=== PATIENT | male | born 1945 | race Two or more races ===

== ENCOUNTER 2017-04-07 10:13 | Emergency (ER) | payer OTHER ==
[2017-04-07 10:18] VITALS: BMI 31.6
[2017-04-07] MEDS ORDERED: KETOROLAC TROMETHAMINE 30 MG/1 ML VIAL IVPUSH ONE (11:02)
[2017-04-07] MEDS ORDERED: SODIUM CHLORIDE 1,000 ML IV STA (11:02)
--- NOTE | 2017-04-07 11:03 | PDOC ---
History of Present Illness - History of Present Illness Initial Comments: 04/07/17 11:05 The patient is a 71 year old male, cook islander speaking, with a significant past medical history of diabetes, hld, umbilical hernias s/p multiple repairs, and obesity, who presents to the emergency department with 4 days of intermittent right upper quadrant and right flank pain. The patient denies any exacerbating or alleviating factors. He denies association with food. He denies injury or recent exercising. He also denies taking medication for his symptoms. He denies chest pain, shortness of breath, headache and dizziness. He denies fever, chills, nausea, vomit, diarrhea and constipation. He denies dysuria, frequency, urgency and hematuria. Allergies: NKDA Past surgical history: umbilical hernia repairs Social history: Pt denies tobacco use. Pt denies alcohol consumption PCP - Dr. Jose <Daniela Santana - Last Filed: 04/07/17 11:04> <Thais Cheney - Last Filed: 04/07/17 13:16> - General History Source: Patient Exam Limitations: No Limitations <Wellington Morocho - Last Filed: 04/07/17 14:41> - General Chief Complaint: Pain Stated Complaint: ABD PAIN Time Seen by Provider: 04/07/17 10:44 Past History <Daniela Santana - Last Filed: 04/07/17 11:04> <Thais Cheney - Last Filed: 04/07/17 13:16> - Past Medical History Anemia: No Asthma: Yes Cancer: No Cardiac Disorders: No CVA: No COPD: No CHF: No Dementia: No Diabetes: Yes (GERD,INTERNAL HEMORRHOIDS,CONSTIPATION,COLON POLYP) GI Disorders: No Disorders: Yes (PROSTATE) HTN: Yes Hypercholesterolemia: Yes Liver Disease: No Seizures: No Thyroid Disease: No - Surgical History Abdominal Surgery: Yes (hernia repair x3) Appendectomy: No Cardiac Surgery: No Cholecystectomy: No Lung Surgery: No Neurologic Surgery: No Orthopedic Surgery: No - Suicide/Smoking/Psychosocial Hx Smoking History: Never smoked Have you smoked in the past 12 months: No If you are a former smoker, when did you quit?: 35 YRS AGO Information on smoking cessation initiated: No Hx Alcohol Use: No Drug/Substance Use Hx: No Substance Use Type: None Hx Substance Use Treatment: No <Wellington Morocho - Last Filed: 04/07/17 14:41> - Past Medical History Allergies/Adverse Reactions: Allergies Allergy/AdvReac Type Severity Reaction Status Date / Time No Known Allergies Allergy Verified 04/07/17 10:18 Home Medications: Ambulatory Orders Albuterol Sulfate [Proair Hfa -] 1 inhaler IN PRN PRN 10/04/12 Aspirin [ASA -] 81 mg PO DAILY 10/04/12 Atorvastatin Ca [Lipitor] 20 mg PO HS 10/04/12 Doxepin HCl [Sinequan -] 50 mg PO DAILY 10/04/12 Enalapril Maleate [Vasotec -] 5 mg PO DAILY 10/04/12 Metformin HCl [Glucophage -] 500 mg PO DAILY 10/04/12 Montelukast Na [Singulair -] 10 mg PO HS 10/04/12 Omeprazole [Prilosec (RX)] 20 mg PO DAILY 10/04/12 Polyethylene Glycol 3350 [Miralax 255 gm Btl -] 17 gm PO DAILY #1 bottle Psyllium Husk (with Sugar) [Metamucil Packet] 1 each PO BID #0 packet 10/04/12 Tamsulosin HCl 0.4 mg PO DAILY 10/04/12 Venlafaxine HCl [Venlafaxine HCl ER] 150 mg PO DAILY 10/04/12 Ibuprofen 600 mg PO Q8H PRN #15 tablet 04/07/17 Review of Systems - Review of Systems Able to Perform ROS?: Yes Comments:: 04/07/17 11:06 GENERAL/CONSTITUTIONAL: No fever or chills. No weakness. HEAD, EYES, EARS, NOSE AND THROAT: No change in vision. No ear pain or discharge. No sore throat. CARDIOVASCULAR: No chest pain or shortness of breath. RESPIRATORY: No cough, wheezing, or hemoptysis. GASTROINTESTINAL: (+) RUQ pain. No nausea, vomiting, diarrhea or constipation. GENITOURINARY: (+) Right flank pain. No dysuria, frequency, or change in urination. MUSCULOSKELETAL: No joint or muscle swelling or pain. No neck or back pain. SKIN: No rash NEUROLOGIC: No headache, vertigo, loss of consciousness, or change in strength/ sensation. ENDOCRINE: No increased thirst. No abnormal weight change. HEMATOLOGIC/LYMPHATIC: No anemia, easy bleeding, or history of blood clots. ALLERGIC/IMMUNOLOGIC: No hives or skin allergy. <Daniela Santana - Last Filed: 04/07/17 11:04> *Physical Exam - Vital Signs Last Vital Signs Temp Pulse Resp BP Pulse Ox 98 F 86 18 146/76 98 04/07/17 10:16 04/07/17 10:16 04/07/17 10:16 04/07/17 10:16 04/07/17 10:16 - Physical Exam Comments: 04/07/17 11:07 GENERAL: Obese. Awake, alert, and fully oriented, in no acute distress HEAD: No signs of trauma EYES: PERRLA, EOMI, sclera anicteric, conjunctiva clear ENT: Auricles normal inspection, hearing grossly normal, nares patent, oropharynx clear without exudates. Moist mucosa NECK: Normal ROM, supple, no lymphadenopathy, JVD, or masses LUNGS: Breath sounds equal, clear to auscultation bilaterally. No wheezes, and no crackles HEART: Regular rate and rhythm, normal S1 and S2, no murmurs, rubs or gallops ABDOMEN: Soft, nontender, normoactive bowel sounds. No guarding, no rebound. No masses MUSCULOSKELETAL: (+) Right CVA tenderness. No CVA tenderness on the left. EXTREMITIES: Normal range of motion, no edema. No clubbing or cyanosis. No cords , erythema, or tenderness NEUROLOGICAL: Cranial nerves II-XII intact. Normal speech, normal gait. Sensation intact in upper and lower extremities. 5/5 motor strength in upper and lower extremities. No pronator drift. Finger to nose intact. Rapid alternations intact. SKIN: Warm, Dry, normal turgor, no rashes or lesions noted. <Daniela Santana - Last Filed: 04/07/17 11:04> - Vital Signs Last Vital Signs Temp Pulse Resp BP Pulse Ox 98 F 86 18 146/76 98 04/07/17 10:16 04/07/17 10:16 04/07/17 10:16 04/07/17 10:16 04/07/17 10:16 <Thais Cheney - Last Filed: 04/07/17 13:16> - Vital Signs Last Vital Signs Temp Pulse Resp BP Pulse Ox 98 F 86 18 146/76 98 04/07/17 10:16 04/07/17 10:16 04/07/17 10:16 04/07/17 10:16 04/07/17 10:16 <Wellington Morocho - Last Filed: 04/07/17 14:41> ED Treatment Course - LABORATORY CBC & Chemistry Diagram: 04/07/17 11:20 04/07/17 11:20 - ADDITIONAL ORDERS Additional order review: Laboratory Results 04/07/17 04/07/17 11:20 11:20 Sodium 135 L Potassium 5.0 Chloride 103 Carbon Dioxide 25 Anion Gap 7 L BUN 16 Creatinine 0.9 Creat Clearance w eGFR > 60 Random Glucose 149 H Calcium 9.4 Total Bilirubin 0.7 AST 42 H ALT 31 Alkaline Phosphatase 88 Total Protein 7.5 Albumin 4.1 Lipase 202 Urine Color Ltyellow Urine Appearance Clear Urine pH 5.0 Urine Protein Negative Urine Glucose (UA) 2+ H Urine Ketones Negative Urine Blood Negative Urine Nitrite Negative Urine Bilirubin Negative Urine Urobilinogen Negative 04/07/17 11:20 RBC 6.23 H MCV 80.8 MCHC 33.2 RDW 15.0 MPV 8.1 Neutrophils % 64.2 Lymphocytes % 25.0 Monocytes % 8.9 Eosinophils % 1.2 Basophils % 0.7 - RADIOLOGY Radiograph Interpretation: 04/07/17 13:[address] without contrast, reviewed and interpreted by Dr. Valencia. Impression: No CT evidence of urolithiasis or hydroureteronephrosis. Prostate enlargement which is at least moderate. Cholelithaisis without CT evidence of acute cholecystitis. In comparison to a [address] study which partially imaged the lower chest note is made of interval development of left basilar bronchiectasis with associated peribronchial thickening. Umbilical hernia containing fat. A short segment of a small bowel loop slightly bulges into the hernia defect. Hepatic steatosis. - Medications Given in the ED: ED Medications Discontinued Medications Generic Name Dose Route Start Last Admin Trade Name Freq PRN Reason Stop Dose Admin Sodium Chloride 1,000 mls @ 1,000 mls/hr 04/07/17 11:02 04/07/17 11:44 Normal Saline - IV 04/07/17 12:01 1,000 mls/hr ASDIR STA Administration Ketorolac Tromethamine 30 mg 04/07/17 11:02 04/07/17 11:44 Toradol Injection - IVPUSH 04/07/17 11:03 30 mg ONCE ONE Administration <Thais Cheney - Last Filed: 04/07/17 13:16> - LABORATORY CBC & Chemistry Diagram: 04/07/17 11:20 04/07/17 11:20 - RADIOLOGY Radiology Studies Ordered: Category Date Time Status SPIRAL- RENAL-STONE CT [CT] Stat CT Scan 04/07/17 11:02 Ordered <Wellington Morocho - Last Filed: 04/07/17 14:41> Medical Decision Making - Medical Decision Making 04/07/17 11:41 A portion of this note was documented by scribe services under my direction. I have reviewed the details of the note, within reason, and agree with the documentation with the following case summary and management plan written by me. Patient treated in the ED. Nursing notes are reviewed and incorporated into the medical decision-making. Vital signs reviewed. Peripheral IV access obtained by the nurse, laboratory studies are drawn and sent, reviewed and interpreted by myself. Vital Signs Temp Pulse Resp BP Pulse Ox 98 F 86 18 146/76 98 04/07/17 10:16 04/07/17 10:16 04/07/17 10:16 04/07/17 10:16 04/07/17 10:16 71 year old male with past medical history of diabetes, hypertension, umbilical hernia status post multiple repairs, obesity presents with right flank and right upper abdominal pain. Patient reports four days worsened with twisting and turning side to side. States standing up improves the pain but worsens with lying down or palpation. Denies fevers, chills, nausea, vomiting, dysuria, hematuria. Differential includes MSK pain, pyelonephritis, kidney stones, colitis. Labs, CT scan, reassess. 04/07/17 14:38 CBC, BMP 04/07/17 11:20 04/07/17 11:20 CMP Sodium 135 mmol/L (136-145) L 04/07/17 11:20 Potassium 5.0 mmol/L (3.5-5.1) 04/07/17 11:20 Chloride 103 mmol/L (98-107) 04/07/17 11:20 Carbon Dioxide 25 mmol/L (21-32) 04/07/17 11:20 Anion Gap 7 (8-16) L 04/07/17 11:20 BUN 16 mg/dL (7-18) 04/07/17 11:20 Creatinine 0.9 mg/dL (0.7-1.3) 04/07/17 11:20 Creat Clearance w eGFR > 60 (>60) 04/07/17 11:20 Random Glucose 149 mg/dL (74-106) H 04/07/17 11:20 Calcium 9.4 mg/dL (8.5-10.1) 04/07/17 11:20 Total Bilirubin 0.7 mg/dL (0.2-1.0) 04/07/17 11:20 AST 42 U/L (15-37) H 04/07/17 11:20 ALT 31 U/L (12-78) 04/07/17 11:20 Alkaline Phosphatase 88 U/L (45-117) 04/07/17 11:20 Total Protein 7.5 g/dl (6.4-8.2) 04/07/17 11:20 Albumin 4.1 g/dl (3.4-5.0) 04/07/17 11:20 Lipase 202 U/L (73-393) 04/07/17 11:20 Urine Test Results Urine Color Ltyellow 04/07/17 11:20 Urine Appearance Clear 04/07/17 11:20 Urine pH 5.0 (5.0-8.0) 04/07/17 11:20 Urine Protein Negative (NEGATIVE) 04/07/17 11:20 Urine Glucose (UA) 2+ (NEGATIVE) H 04/07/17 11:20 Urine Ketones Negative (NEGATIVE) 04/07/17 11:20 Urine Blood Negative (NEGATIVE) 04/07/17 11:20 Urine Nitrite Negative (NEGATIVE) 04/07/17 11:20 Urine Bilirubin Negative (NEGATIVE) 04/07/17 11:20 CAT scan demonstrates umbilical hernia, cholelithiasis without acute cholecystitis and prostate enlargement. There is also interval development a left basilar bronchiectasis with associated peribronchial thickening. However, patient is no coughing and no left sided symptoms. We'll give a copy of the CAT scan have patient bring the results to his doctor. Patient reports that the Toradol is improved the pain drastically. He has no right upper quadrant tenderness so unlikely to be acute cholecystitis at this time. I suspect again this is muscle skeletal given that the movements worsen the pain and better at rest. Patient verbalizes agrees with plan. I discussed the physical exam findings, ancillary test results and final diagnoses with the patient. I answered all of the patient's questions. The patient was satisfied with the care received and felt comfortable with the discharge plan and treatment plan. The patient will call their primary care physician within 24 hours to arrange follow-up and will return to the Emergency Department with any new, persistant or worsening symptoms. <Wellington Morocho - Last Filed: 04/07/17 14:41> *DC/Admit/Observation/Transfer - Attestations Scribe Attestion: 04/07/17 11:07 Documentation prepared by Daniela Santana, acting as chief medical technologist for Wellington Morocho MD, <Daniela Santana - Last Filed: 04/07/17 11:04> - Attestations Scribe Attestion: 04/07/17 13:21 Documentation prepared by Thais Cheney, acting as chief medical technologist for Wellington Morocho MD. <Thais Cheney - Last Filed: 04/07/17 13:16> - Discharge Dispostion Admit: No <Wellington Morocho - Last Filed: 04/07/17 14:41> Diagnosis at time of Disposition: Flank pain - Discharge Dispostion Disposition: HOME Condition at time of disposition: Improved - Prescriptions Prescriptions: Ibuprofen 600 mg PO Q8H PRN #15 tablet PRN Reason: Pain - Referrals Referrals: Zarina Jose MD [Primary Care Provider] - Nathan Burnette MD [Staff Physician] - - Patient Instructions Printed Discharge Instructions: DI for Gallstones Additional Instructions: We suspect that the pain is likely muscle skeletal at this time. Your blood work and a urine is within normal limits. However, it is important to take a copy of your CAT scan and bring it to your doctor. You have gallstones but is unlikely to be the cause of the pain at this time. However, please avoid fatty foods and follow-up with a general surgeon for follow-up. Please call your doctor schedule a follow-up point. If you have uncontrollable pain, please return to the ER for further evaluation. Print Language: BURUNDIAN
[2017-04-07 11:28] LABS: BASOPHIL 0.7 % (0-2.0); EOSINOPHIL 1.2 % (0-4.5); MCH 26.8 pg (25.7-33.7); MCHC 33.2 g/dl (32.0-35.9); MEAN CELL VOLUME 80.8 fl (80-96); MEAN PLT VOLUME 8.1 fl (7.5-11.1); NEUTROPHILS 64.2 % (42.8-82.8); PLATELET COUNT 210 K/MM3 (134-434); WHITE BLOOD COUNT 8.1 K/mm3 (4.0-10.0)
[2017-04-07 11:29] LABS: URINE APPEARANCE CLEAR; URINE BILIRUBIN NEGATIVE (NEGATIVE); URINE BLOOD NEGATIVE (NEGATIVE); URINE COLOR LTYELLOW; URINE GLUCOSE (UA) 2+ (NEGATIVE); URINE KETONE NEGATIVE (NEGATIVE); URINE LEUK ESTERASE NEGATIVE (NEGATIVE); URINE NITRITE NEGATIVE (NEGATIVE); URINE PROTEIN NEGATIVE (NEGATIVE); URINE UROBILINOGEN NEGATIVE mg/dL (0.2-1.0)
[2017-04-07] MEDS ORDERED: KETOROLAC TROMETHAMINE 30 MG/1 ML VIAL ONE (11:40)
[2017-04-07 11:52] LABS: ALBUMIN 4.1 g/dl (3.4-5.0); ALK PHOS 88 U/L (45-117); ANION GAP 7 (8-16); BILIRUBIN,TOTAL 0.7 mg/dL (0.2-1.0); CALCIUM 9.4 mg/dL (8.5-10.1); CO2 25 mmol/L (21-32); CREATININE 0.9 mg/dL (0.7-1.3); GLUCOSE,RANDOM 149 mg/dL (74-106); SGPT/ALT 31 U/L (12-78); TOT PROT 7.5 g/dl (6.4-8.2)
[2017-04-07 11:54] LABS: SGOT/AST 42 U/L (15-37)
[2017-04-07] MEDS ORDERED: ACETAMINOPHEN 325 MG TABLET (FP) PO ONE (14:03)
[2017-04-07] MEDS ORDERED: ACETAMINOPHEN 325 MG TABLET (FP) ONE (15:01)
[2017-04-07 15:12] VITALS: BP 139/79; PULSE 67; TEMP 98
== END 2017-04-07 15:12 | disposition home or self-care (01) ==
LOC: JER 10:13
PROC: 3E0333Z Introduction of Anti-inflammatory into Peripheral Vein, Percutaneous Approach (ICD-10-PCS; principal; 2017-04-07)
DX: K80.20 Calculus of gallbladder without cholecystitis without obstruction (principal); K42.9 Umbilical hernia without obstruction or gangrene; N40.0 Benign prostatic hyperplasia without lower urinary tract symptoms; J45.909 Unspecified asthma, uncomplicated; E11.9 Type 2 diabetes mellitus without complications; Z79.84 Long term (current) use of oral hypoglycemic drugs; E78.00 Pure hypercholesterolemia, unspecified; Z87.19 Personal history of other diseases of the digestive system
CPT/HCPCS: 36415; 74176; 80053; 81003; 83690; 85025; 87086; 99283-25

== ENCOUNTER 2017-07-05 12:25 | Inpatient (IN) | payer OTHER ==
--- NOTE | 2017-07-05 12:52 | PDOC ---
History of Present Illness - General History Source: Patient Exam Limitations: No Limitations - History of Present Illness Initial Comments: 07/05/17 14:11 The patient is a 72 year old male with a significant PMH of diabetes, hyperlipidemia, depression, bilateral knee arthritis, and umbilical hernias (s/ p multiple repairs) who presents to the emergency department with chest pain and subjective fever beginning approximately yesterday morning. The patient reports that he was walking yesterday morning when he experienced a sudden onset of diffuse chest pain. He reports that his chest pain is aggravated by minimal exertion and deep inspiration. He notes he was unable to lie down flat or exert himself too much all of yesterday. He notes he does not feel chest pain at presentation but can reproduce it by bending over, walking, or deeply inspiring. The patient also notes having a subjective fever yesterday with associated night sweats. The patient denies shortness of breath, headache and dizziness. Denies chills, nausea, vomit, diarrhea and constipation. Denies dysuria, frequency, urgency and hematuria. Allergies: NKA Past surgical history: 3x umbilical hernia repairs. Social history: Former smoker (35 years ago). No reported alcohol or drug use. PCP: Dr. Johnson If patient wants to call brother, his brother's # is <Wellington Dunbar - Last Filed: 07/05/17 18:31> <Melissa Avila - Last Filed: 07/11/17 11:03> - General Chief Complaint: Chest Pain Stated Complaint: CHEST PAIN Time Seen by Provider: 07/05/17 12:50 Past History <Wellington Dunbar - Last Filed: 07/05/17 18:31> - Past Medical History Anemia: No Asthma: Yes Cancer: No Cardiac Disorders: No CVA: No COPD: No CHF: No DVT: No Dementia: No Diabetes: Yes (GERD,INTERNAL HEMORRHOIDS,CONSTIPATION,COLON POLYP) GI Disorders: No Disorders: Yes (PROSTATE) HTN: Yes Hypercholesterolemia: Yes Liver Disease: No Seizures: No Thyroid Disease: No - Surgical History Abdominal Surgery: Yes (hernia repair x3) Appendectomy: No Cardiac Surgery: No Cholecystectomy: No Lung Surgery: No Neurologic Surgery: No Orthopedic Surgery: No - Suicide/Smoking/Psychosocial Hx Smoking History: Never smoked Have you smoked in the past 12 months: No If you are a former smoker, when did you quit?: 35 YRS AGO Information on smoking cessation initiated: No Hx Alcohol Use: No Drug/Substance Use Hx: No Substance Use Type: None Hx Substance Use Treatment: No <AutsinMelissa - Last Filed: 07/11/17 11:03> - Past Medical History Allergies/Adverse Reactions: Allergies Allergy/AdvReac Type Severity Reaction Status Date / Time No Known Allergies Allergy Verified 07/05/17 12:39 Home Medications: Ambulatory Orders Albuterol Sulfate [Proair Hfa -] 1 inhaler IN PRN PRN 10/04/12 Aspirin [ASA -] 81 mg PO DAILY 10/04/12 Atorvastatin Ca [Lipitor] 20 mg PO HS 10/04/12 Doxepin HCl [Sinequan -] 100 mg PO DAILY 10/04/12 Metformin HCl [Glucophage -] 500 mg PO 1700 10/04/12 Omeprazole [Prilosec (RX)] 20 mg PO DAILY 10/04/12 Polyethylene Glycol 3350 [Miralax 255 gm Btl -] 17 gm PO DAILY #1 bottle Psyllium Husk (with Sugar) [Metamucil Packet] 1 each PO BID #0 packet 10/04/12 Tamsulosin HCl 0.4 mg PO HS 10/04/12 Venlafaxine HCl [Venlafaxine HCl ER] 225 mg PO DAILY 10/04/12 Fluticasone Furoate [Flonase Sensimist] 1 spr NS DAILY 07/05/17 Loratadine [Claritin -] 10 mg PO DAILY 07/05/17 Losartan Potassium [Cozaar -] 25 mg PO DAILY 07/05/17 Albuterol 2.5/Ipratropium 0.5 [Duoneb -] 1 amp NEB Q8H PRN #1 amp 07/07/17 Azithromycin [Zithromax -] 500 mg PO DAILY #8 tab 07/07/17 Cefuroxime Axetil [Cefuroxime] 500 mg PO BID #8 tablet 07/07/17 Miscellaneous Medical Supply [Outpatient Order] 1 each ASDIR #1 misc Review of Systems - Review of Systems Able to Perform ROS?: Yes Comments:: 07/05/17 14:11 GENERAL/CONSTITUTIONAL: (+) Subjective fever. (+) Night sweats. No chills. No weakness. HEAD, EYES, EARS, NOSE AND THROAT: No change in vision. No ear pain or discharge. No sore throat. CARDIOVASCULAR: (+) Diffuse chest pain. No shortness of breath. RESPIRATORY: No cough, wheezing, or hemoptysis. GASTROINTESTINAL: No nausea, vomiting, diarrhea or constipation. GENITOURINARY: No dysuria, frequency, or change in urination. MUSCULOSKELETAL: No joint or muscle swelling or pain. No neck or back pain. SKIN: No rash NEUROLOGIC: No headache, vertigo, loss of consciousness, or change in strength/ sensation. ENDOCRINE: No increased thirst. No abnormal weight change. HEMATOLOGIC/LYMPHATIC: No anemia, easy bleeding, or history of blood clots. ALLERGIC/IMMUNOLOGIC: No hives or skin allergy. <Wellington Dunbar - Last Filed: 07/05/17 18:31> *Physical Exam - Vital Signs Last Vital Signs Temp Pulse Resp BP Pulse Ox 98.7 F 113 H 22 139/87 95 07/05/17 12:41 07/05/17 12:41 07/05/17 12:41 07/05/17 12:41 07/05/17 13:17 <Wellington Dunbar - Last Filed: 07/05/17 18:31> - Vital Signs Last Vital Signs Temp Pulse Resp BP Pulse Ox 98.7 F 113 H 22 139/87 96 07/05/17 12:41 07/05/17 12:41 07/05/17 12:41 07/05/17 12:41 07/05/17 12:41 - Physical Exam Comments: GENERAL: Awake, alert, and fully oriented, in no acute distress. Appears ill but nontoxic. HEAD: No signs of trauma EYES: PERRLA, EOMI, sclera anicteric, conjunctiva clear ENT: Auricles normal inspection, hearing grossly normal, nares patent, oropharynx clear without exudates. Dry mucosa NECK: Normal ROM, supple, no lymphadenopathy, JVD, or masses LUNGS: Breath sounds equal, clear to auscultation bilaterally. No wheezes, and no crackles HEART: Tachycardic with regular rhythm. Normal S1 and S2, no murmurs, rubs or gallops ABDOMEN: Soft, nontender, normoactive bowel sounds. No guarding, no rebound. No masses EXTREMITIES: Normal range of motion, no edema. No clubbing or cyanosis. No cords, erythema, or tenderness NEUROLOGICAL: Cranial nerves II through XII grossly intact. Normal speech, normal gait SKIN: Warm, Dry, normal turgor, no rashes or lesions noted. <Melissa Avila - Last Filed: 07/11/17 11:03> ED Treatment Course - LABORATORY CBC & Chemistry Diagram: 07/05/17 13:00 07/05/17 13:00 - ADDITIONAL ORDERS Additional order review: Laboratory Results 07/05/17 13:00 Sodium 136 Potassium 4.0 Chloride 99 Carbon Dioxide 27 Anion Gap 10 BUN 9 D Creatinine 1.1 D Creat Clearance w eGFR > 60 Random Glucose 161 H Calcium 9.2 Total Bilirubin 1.3 H D AST 12 L D ALT 21 D Alkaline Phosphatase 90 Creatine Kinase 155 Troponin I < 0.02 Total Protein 7.6 Albumin 3.9 07/05/17 13:00 RBC 6.31 H MCV 79.5 L MCHC 32.9 RDW 14.4 MPV 8.2 Neutrophils % 79.2 D Lymphocytes % 11.8 D Monocytes % 7.9 Eosinophils % 0.4 Basophils % 0.7 <Wellington Dunbar - Last Filed: 07/05/17 18:31> - LABORATORY CBC & Chemistry Diagram: 07/07/17 05:05 07/07/17 05:05 <Melissa Avila - Last Filed: 07/11/17 11:03> Medical Decision Making - Medical Decision Making 07/05/17 18:26 Pt reassessed. Still appears uncomfortable. CTA shows signs of bronchiectasis. He has elevated WBC on labs, this may possibly be a pneumonia. However, with the exertional chest pain and recent fever, would also consider myocarditis. Will admit for further management. <Melissa Avila - Last Filed: 07/11/17 11:03> *DC/Admit/Observation/Transfer - Attestations Scribe Attestion: 07/05/17 14:11 Documentation prepared by Wellington Dunbar, acting as medical billing coordinator for Melissa Avila MD. <Wellington Dunbar - Last Filed: 07/05/17 18:31> - Discharge Dispostion Admit: Yes <Melissa Avila - Last Filed: 07/11/17 11:03> Diagnosis at time of Disposition: Chest pain, Pneumonia - Discharge Dispostion Disposition: VNS/HOME HEALTH CARE Condition at time of disposition: Good
[2017-07-05 13:24] LABS: BASO % 0.7 % (0-2.0); EOS % 0.4 % (0-4.5); MCH 26.2 pg (25.7-33.7); MCHC 32.9 g/dl (32.0-35.9); MEAN CELL VOLUME 79.5 fl (80-96); MEAN PLT VOLUME 8.2 fl (7.5-11.1); NEUT % 79.2 % (42.8-82.8); PLATELET COUNT 253 K/MM3 (134-434); RDW 14.4 % (11.9-15.9); WHITE BLOOD COUNT 16.2 K/mm3 (4.0-10.0)
[2017-07-05 13:46] LABS: ALBUMIN 3.9 g/dl (3.4-5.0); ANION GAP 10 (8-16); BILIRUBIN,TOTAL 1.3 mg/dL (0.2-1.0); CALCIUM 9.2 mg/dL (8.5-10.1); CO2 27 mmol/L (21-32); CREATININE 1.1 mg/dL (0.7-1.3); GLUCOSE,RANDOM 161 mg/dL (74-106); SGOT/AST 12 U/L (15-37); SGPT/ALT 21 U/L (12-78); TOT PROT 7.6 g/dl (6.4-8.2)
[2017-07-05 13:47] LABS: ALK PHOS 90 U/L (45-117); CPK 155 IU/L (39-308); TROPONIN I < 0.02 ng/ml (0.00-0.05)
[2017-07-05] MEDS ORDERED: SODIUM CHLORIDE 1,000 ML IV STA (13:57)
[2017-07-05 14:08] LABS: INR 1.2 (0.82-1.09); PROTHROMBIN TIME (PATIENT) 13.6 SEC (9.98-11.88)
[2017-07-05] MEDS ORDERED: ACETAMINOPHEN 325 MG TABLET (FP) PO ONE (14:09)
[2017-07-05] MEDS ORDERED: ACETAMINOPHEN 325 MG TABLET (FP) ONE (14:59)
[2017-07-05] MEDS ORDERED: AZITHROMYCIN IVPB 500 MG in DEXTROSE 5%-WATER - 250 ML IVPB ONE ×2 (18:14→19:47)
[2017-07-05] MEDS ORDERED: CEFTRIAXONE 1 GM in DEXTROSE 5%-WATER - 50 ML IVPB ONE (18:14)
[2017-07-05] MEDS ORDERED: ASPIRIN 81 MG CHEWABLE TABLETS PO ONE (18:20)
[2017-07-05] MEDS ORDERED: AZITHROMYCIN IVPB 250 ML IVPB ONE (19:10)
[2017-07-05] MEDS ORDERED: ASPIRIN 81 MG CHEWABLE TABLETS ONE (19:10)
[2017-07-05] MEDS ORDERED: CEFTRIAXONE 1 GM/50 ML BAG ONE (19:10)
--- NOTE | 2017-07-05 19:21 | PN ---
Teaching Attending Note Name of Resident: Maryann Phan ATTENDING PHYSICIAN STATEMENT I saw and evaluated the patient. I reviewed the resident's note and discussed the case with the resident. I agree with the resident's findings and plan as documented. SUBJECTIVE: 72 m with pmhx. of DM, HLD, depression, bilateral knee arthritis, and umbilical hernias (s/p multiple repairs) who presents with left sided chest pain. States pain began as he was walking yesterday. States chest pain is much improved. No fevers or chills currently. No N/V/D. OBJECTIVE: Physical: VS: Vital Signs Period Temp Pulse Resp BP Sys/Grande Pulse Ox Last 24 Hr 98.7 F 100-113 18-22 125-139/74-87 94-96 GEN: NAD, Resting in bed, able to speak full sentences HEENT: NCAT, PERRl, Throat without erythema or exudates CARD: RRR S1, S2 RESP: CTAB ABD: BSx4, NTD to palption EXT: - C/C/E CBCD WBC 16.2 K/mm3 (4.0-10.0) H D 07/05/17 13:00 RBC 6.31 M/mm3 (4.00-5.60) H 07/05/17 13:00 Hgb 16.5 GM/dL (11.7-16.9) 07/05/17 13:00 Hct 50.1 % (35.4-49) H 07/05/17 13:00 MCV 79.5 fl (80-96) L 07/05/17 13:00 MCHC 32.9 g/dl (32.0-35.9) 07/05/17 13:00 RDW 14.4 % (11.9-15.9) 07/05/17 13:00 Plt Count 253 K/MM3 (134-434) D 07/05/17 13:00 MPV 8.2 fl (7.5-11.1) 07/05/17 13:00 CMP Sodium 136 mmol/L (136-145) 07/05/17 13:00 Potassium 4.0 mmol/L (3.5-5.1) 07/05/17 13:00 Chloride 99 mmol/L (98-107) 07/05/17 13:00 Carbon Dioxide 27 mmol/L (21-32) 07/05/17 13:00 Anion Gap 10 (8-16) 07/05/17 13:00 BUN 9 mg/dL (7-18) D 07/05/17 13:00 Creatinine 1.1 mg/dL (0.7-1.3) D 07/05/17 13:00 Creat Clearance w eGFR > 60 (>60) 07/05/17 13:00 Random Glucose 161 mg/dL (74-106) H 07/05/17 13:00 Calcium 9.2 mg/dL (8.5-10.1) 07/05/17 13:00 Total Bilirubin 1.3 mg/dL (0.2-1.0) H D 07/05/17 13:00 AST 12 U/L (15-37) L D 07/05/17 13:00 ALT 21 U/L (12-78) D 07/05/17 13:00 Alkaline Phosphatase 90 U/L (45-117) 07/05/17 13:00 Total Protein 7.6 g/dl (6.4-8.2) 07/05/17 13:00 Albumin 3.9 g/dl (3.4-5.0) 07/05/17 13:00 CARDIAC ENZYMES Creatine Kinase 155 IU/L (39-308) 07/05/17 13:00 Troponin I < 0.02 ng/ml (0.00-0.05) 07/05/17 13:00 Ambulatory Orders RX: Albuterol Sulfate [Proair Hfa -] 1 inhaler IN PRN PRN 10/04/12 RX: Aspirin [ASA -] 81 mg PO DAILY 10/04/12 RX: Atorvastatin Ca [Lipitor] 20 mg PO HS 10/04/12 RX: Doxepin HCl [Sinequan -] 100 mg PO DAILY 10/04/12 RX: Metformin HCl [Glucophage -] 500 mg PO 1700 10/04/12 RX: Omeprazole [Prilosec (RX)] 20 mg PO DAILY 10/04/12 RX: Polyethylene Glycol 3350 [Miralax 255 gm Btl -] 17 gm PO DAILY #1 bottle RX: Psyllium Husk (with Sugar) [Metamucil Packet] 1 each PO BID #0 packet RX: Tamsulosin HCl 0.4 mg PO HS 10/04/12 RX: Venlafaxine HCl [Venlafaxine HCl ER] 225 mg PO DAILY 10/04/12 Fluticasone Furoate [Flonase Sensimist] 1 spr NS DAILY 07/05/17 Loratadine [Claritin -] 10 mg PO DAILY 07/05/17 Losartan Potassium [Cozaar -] 25 mg PO DAILY 07/05/17 CTA: No CT evidence of PE, but bronchiectesis present. HEART 4 EKG: NSR, NO ST-T changes ASSESSMENT AND PLAN: 72 m with pmhx. of DM, HLD, depression, bilateral knee arthritis, and umbilical hernias (s/p multiple repairs) whois being admitted for acs rule out 1.) Chest Pain - Ro ACS - Trend Trop/EKG - ASA - BB, ARB - 02 - Morphine/Nitro prn chest pain - Statin - Lipid/A1c 2.) Atypical Pneumonia - U Ag - Ceftriaxone, Azithro 3.) DM - FS - RAISS - HgbA1c 4.) Depression - C/W Current meds 5.) Dvt ppx - Heparin [address] in Obs-Tele
--- NOTE | 2017-07-05 19:56 | HP ---
CHIEF COMPLAINT: Chest pain PCP: Dr. Johnson HISTORY OF PRESENT ILLNESS: Patient is a 72 year old male with a PMHx of NIDDMII, HLD, HTN, depression, Arthritis who presented today for sudden sharp left sided chest pain that started yesterday morning associated with subjective fevers. Patient states the pain is exacerbated with minimal exertion, moving or bending and associated with dyspnea However, when he lays flat down the chest pain is gone. Patient's chest pain worsened today to the point he was unable to tolerate it, which prompted this hospital visit. Patient denies being around sick people. Patient also denies any orthopnea. Otherwise, patient denies nausea, vomiting, abdominal pain, shortness of breath, headaches, dizziness, hematuria, dysuria, frequency. ER course was notable for: (1) CTA revealed Broncheictasis (2) Patient given ASA 162, Azithromycin and Ceftriaxone (3) EKG revealed no ST-T changes Recent Travel: Denies PAST MEDICAL HISTORY: NIDDMII, HLD, HTN, depression, Arthritis PAST SURGICAL HISTORY: Hernia Repair x3 Social History: Smoking: Former Smoker. Quit 35 years ago Alcohol: Denies Drugs: Denies Family History: Non-contributory Allergies: No Known Allergies Allergy (Verified 07/05/17 12:39) HOME MEDICATIONS: Home Medications Medication Instructions Recorded Albuterol Sulfate [Proair Hfa -] 1 inhaler IN PRN PRN 10/04/12 Aspirin [ASA -] 81 mg PO DAILY 10/04/12 Atorvastatin Ca [Lipitor] 20 mg PO HS 10/04/12 Doxepin HCl [Sinequan -] 100 mg PO DAILY 10/04/12 Metformin HCl [Glucophage -] 500 mg PO 1700 10/04/12 Omeprazole [Prilosec (RX)] 20 mg PO DAILY 10/04/12 Polyethylene Glycol 3350 [Miralax 17 gm PO DAILY #1 bottle 10/04/12 255 gm Btl -] Psyllium Husk (with Sugar) 1 each PO BID #0 packet 10/04/12 [Metamucil Packet] Tamsulosin HCl 0.4 mg PO HS 10/04/12 Venlafaxine HCl [Venlafaxine HCl 225 mg PO DAILY 10/04/12 ER] Fluticasone Furoate [Flonase 1 spr NS DAILY 12/19/17 Sensimist] Loratadine [Claritin -] 10 mg PO DAILY 07/05/17 Losartan Potassium [Cozaar -] 25 mg PO DAILY 07/05/17 REVIEW OF SYSTEMS CONSTITUTIONAL: fever, chills, diaphoresis Absent: generalized weakness, malaise, loss of appetite, weight change HEENT: Absent: rhinorrhea, nasal congestion, throat pain, throat swelling, difficulty swallowing, mouth swelling, ear pain, eye pain, visual changes CARDIOVASCULAR: chest pain Absent: syncope, palpitations, irregular heart rate, lightheadedness, peripheral edema RESPIRATORY: Absent: cough, shortness of breath, dyspnea with exertion, orthopnea, wheezing, stridor, hemoptysis GASTROINTESTINAL: Absent: abdominal pain, abdominal distension, nausea, vomiting, diarrhea, constipation, melena, hematochezia GENITOURINARY: Absent: dysuria, frequency, urgency, hesitancy, hematuria, flank pain, genital pain MUSCULOSKELETAL: Absent: myalgia, arthralgia, joint swelling, back pain, neck pain SKIN: Absent: rash, itching, pallor HEMATOLOGIC/IMMUNOLOGIC: Absent: easy bleeding, easy bruising, lymphadenopathy, frequent infections ENDOCRINE: Absent: unexplained weight gain, unexplained weight loss, heat intolerance, cold intolerance NEUROLOGIC: Absent: headache, focal weakness or paresthesias, dizziness, unsteady gait, seizure, mental status changes, bladder or bowel incontinence PSYCHIATRIC: Absent: anxiety, depression, suicidal or homicidal ideation, hallucinations. PHYSICAL EXAMINATION Vital Signs - 24 hr 07/05/17 07/05/17 07/05/17 12:41 13:17 17:52 Temperature 98.7 F Pulse Rate 113 H Pulse Rate [ 100 H Right Radial] Respiratory 22 18 Rate Blood Pressure 139/87 Blood Pressure 125/74 [Left Arm] O2 Sat by Pulse 96 95 94 L Oximetry (%) GENERAL: Awake, alert, and fully oriented, in no acute distress. HEAD: Normal with no signs of trauma. EYES: Pupils equal, round and reactive to light, extraocular movements intact, sclera anicteric, conjunctiva clear. Mild exophthalmos EARS, NOSE, THROAT: Oropharynx clear without exudates. Moist mucous membranes. NECK: supple without lymphadenopathy, JVD, or masses. LUNGS: Breath sounds equal, clear to auscultation bilaterally. No wheezes, and no crackles. No accessory muscle use. HEART: Regular rate and rhythm, normal S1 and S2 without murmur, rub or gallop. ABDOMEN: Soft, nontender, not distended, normoactive bowel sounds, no guarding, no rebound, no masses. No hepatomegaly or splenomegaly. MUSCULOSKELETAL: No CVA tenderness. UPPER EXTREMITIES: No peripheral edema. LOWER EXTREMITIES: No calf tenderness. No peripheral edema. NEUROLOGICAL: Cranial nerves II-XII intact. Normal speech. Motor strength 5/5 bilaterally with sensory intact. Knee reflexes 2+bilaterally PSYCHIATRIC: Cooperative. Good eye contact. Appropriate mood and affect. SKIN: Warm, dry, normal turgor, no rashes or lesions noted, normal capillary refill. Laboratory Results - last 24 hr 07/05/17 07/05/17 07/05/17 13:00 13:00 13:00 WBC 16.2 H D RBC 6.31 H Hgb 16.5 Hct 50.1 H MCV 79.5 L MCH 26.2 MCHC 32.9 RDW 14.4 Plt Count 253 D MPV 8.2 Neutrophils % 79.2 D Lymphocytes % 11.8 D Monocytes % 7.9 Eosinophils % 0.4 Basophils % 0.7 PT with INR 13.60 H INR 1.20 H Sodium 136 Potassium 4.0 Chloride 99 Carbon Dioxide 27 Anion Gap 10 BUN 9 D Creatinine 1.1 D Creat Clearance w eGFR > 60 Random Glucose 161 H Calcium 9.2 Total Bilirubin 1.3 H D AST 12 L D ALT 21 D Alkaline Phosphatase 90 Creatine Kinase 155 Creatine Kinase Index 0.6 CK-MB (CK-2) < 1.000 Troponin I < 0.02 Total Protein 7.6 Albumin 3.9 IMAGES Chest X-Ray (07/05/17): Cardiomegaly with bibasilar atelectasis CTA (07/05/17): No CT evidence of pulmonary embolism. In comparison to a prior CT study of 05/31/2012 interval development of mild bibasilar bronchiectasis is noted. Associated peribronchial thickening is seen which may be chronic or acute in nature ASSESSMENT/PLAN: Patient is a 72 year old male who presented with chest pain that started yesterday. Patient was found to be septic and admitted for further monitoring and management. Atypical Chest Pain -Rule out ACS -First troponin negative. Continue to trend with EKG's -ASA 161mg given in ED an will resume ASA 81mg ddaily -Continue with Home medication Cozaar -Patient currently on no beta bradley -Morphine or Nitroglycerin for chest pain as needed -Continue with oxygen -Resume home medication Lipitor 20mg daily -Lipid Panel ordered -A1C ordered -TSH ordered. Patient also found to have mild exophthalmos on physical exam -ECHO ordered for the morning -Continue to monitor on telemetry Sepsis Secondary to Possible CAP -Leukocytosis >12 with tachycardia -CTA revealed bronchiectasis ansd atelectasis on chest x-ray which might represent atypical Pneumonia -Urine antigens, sputum cultures, and mycoplasma pneumoniae IgM ordered -IV antibiotics with Ceftriaxone 1gm IVPB daily and Azithromycin 500mg IVPB NIDDM -BGM -ISS -A1C ordered HTN-Controlled -Continue home medication Cozaar 25mg daily -Continue to monitor BP HLD -Continue home medication Lipitor 20mg daily -Lipid panel ordered Depression -Continue home medication Doxepin 100mg daily and Venalafaxine 225mg daily BPH -Continue Tamsulosin 0.4mg daily F/E/N -Given 1 bolus in ED. Tolerates PO -Electrolytes wnl -Sodium and diabetic controlled diet Prophylaxis -Moderate risk. Heparin 5000 units SQ Q8H for DVT -No GI required Disposition -Full code -Will rule out ACS and treat patient with IV abx for sepsis. Will require inpatient overnight Visit type - Emergency Visit Emergency Visit: Yes ED Registration Date: 07/05/17 Care time: The patient presented to the Emergency Department on the above date and was hospitalized for further evaluation of their emergent condition. - New Patient This patient is new to me today: Yes Date on this admission: 07/05/17 - Critical Care Critical Care patient: No
--- NOTE | 2017-07-05 21:01 | EKG ---
Test Reason : Blood Pressure : / mmHG Vent. Rate : 111 BPM Atrial Rate : 111 BPM P-R Int : 152 ms QRS Dur : 084 ms QT Int : 316 ms P-R-T Axes : 022 -29 019 degrees QTc Int : 429 ms SINUS TACHYCARDIA POSSIBLE LEFT ATRIAL ENLARGEMENT BORDERLINE ECG NO PREVIOUS ECGS AVAILABLE Confirmed by MD WINIFRED, SIERRA ([id number]) on 07/05/2017 9:01:13 PM Referred By: Confirmed By:SIERRA VITALE MD
[2017-07-05] MEDS ORDERED: ATORVASTATIN CA 40 MG TABLET (FP) ONE (22:44)
[2017-07-05] MEDS ORDERED: HEPARIN NA (PORCINE) 5,000 UNITS/ML 1ML VIAL ONE (22:44)
[2017-07-05] MEDS ORDERED: TAMSULOSIN HCL 0.4 MG CAP.ER.24H (FP) ONE (22:44)
[2017-07-05] MEDS: TAMSULOSIN HCL 0.4 MG CAP.ER.24H (FP) PO SCH (22:48)
[2017-07-05] MEDS: INSULIN SLIDING SCALE (NOVOLOG) 1 VIAL SQ SCH (22:48)
[2017-07-05] MEDS: ATORVASTATIN CA 20 MG TABLET (FP) PO SCH (22:48)
[2017-07-05] MEDS: HEPARIN NA (PORCINE) 5,000 UNITS/ML 1ML VIAL SQ SCH (22:48)
[2017-07-05 22:55] LABS: THYROID STIMULATING HORMONE 1.95 uIU/ml (0.358-3.74)
[2017-07-06 05:27] VITALS: BMI 31.9
[2017-07-06] MEDS: INSULIN SLIDING SCALE (NOVOLOG) 1 VIAL SQ SCH ×4 (06:34→21:42)
[2017-07-06] MEDS: HEPARIN NA (PORCINE) 5,000 UNITS/ML 1ML VIAL SQ SCH ×3 (06:37→21:42)
--- NOTE | 2017-07-06 07:35 | PN ---
Physical Exam: SUBJECTIVE: Briefly, pt is a 72yo Syrian-speaking M with history of HTN, NIDDM, former smoker, depression who presented to the ED after two episodes of sharp L chest pain lasting 5 minutes each with slight radiation to shoulder. Pt states he hasn 't had this before and that he was sitting when this started. Pt also states he had subjective fevers during this episode. He reports being a former smoker for a couple of years, however he quit about 35 years ago. Pt denies SOB, palpitations, jaw claudication, back pain, abdominal pain, chills, n/v/d/c, lightheadedness and dizziness during the event. He currently denies chest pain/ discomfort alongside of any other symptom. Pt was seen in the ER last night and CTA showed bronchiectasis. Overnight he had no complaints. On cardiac monitoring there was a run of tachycardia which could represent an SVT, however rhythm terminated by itself after only 7 beats. OBJECTIVE: Vital Signs Period Temp Pulse Resp BP Sys/Grande Pulse Ox Last 24 Hr 98.2 F-98.7 F 94-113 18-22 124-139/74-87 94-96 GENERAL: NAD, awake, alert, and fully oriented HEENT: NC/AT, No JVD, soft, EOMI, ADENIKE, moist mucosa with normal structures of mouth, no carotid bruits LUNGS: CTA bilaterally, no wheezes, rhonchi or rales. No accessory muscle use. HEART: RRR, S1, S2 without murmur ABDOMEN: Soft, nontender, nondistended, normoactive bowel sounds, no guarding, no rebound, no hepatosplenomegaly EXTREMITIES: 2+ DP pulses, warm, well-perfused, no edema. NEUROLOGICAL: Cranial nerves II through XII grossly intact. Strength 5/5 grossly. Normal speech, gait not observed. PSYCH: Normal mood, normal affect. SKIN: Warm, dry, no rashes or lesions noted Laboratory Results - last 24 hr 07/05/17 07/05/17 07/05/17 13:00 13:00 13:00 WBC 16.2 H D RBC 6.31 H Hgb 16.5 Hct 50.1 H MCV 79.5 L MCH 26.2 MCHC 32.9 RDW 14.4 Plt Count 253 D MPV 8.2 Neutrophils % 79.2 D Lymphocytes % 11.8 D Monocytes % 7.9 Eosinophils % 0.4 Basophils % 0.7 PT with INR 13.60 H INR 1.20 H Sodium 136 Potassium 4.0 Chloride 99 Carbon Dioxide 27 Anion Gap 10 BUN 9 D Creatinine 1.1 D Creat Clearance w eGFR > 60 POC Glucometer Random Glucose 161 H Calcium 9.2 Total Bilirubin 1.3 H D AST 12 L D ALT 21 D Alkaline Phosphatase 90 Creatine Kinase 155 Creatine Kinase Index 0.6 CK-MB (CK-2) < 1.000 Troponin I < 0.02 Total Protein 7.6 Albumin 3.9 Triglycerides Cholesterol Total LDL Cholesterol HDL Cholesterol TSH 07/05/17 07/05/17 07/05/17 21:56 21:56 22:47 WBC RBC Hgb Hct MCV MCH MCHC RDW Plt Count MPV Neutrophils % Lymphocytes % Monocytes % Eosinophils % Basophils % PT with INR INR Sodium Potassium Chloride Carbon Dioxide Anion Gap BUN Creatinine Creat Clearance w eGFR POC Glucometer [phone] Random Glucose Calcium Total Bilirubin AST ALT Alkaline Phosphatase Creatine Kinase Creatine Kinase Index CK-MB (CK-2) Troponin I < 0.02 Total Protein Albumin Triglycerides 181 H Cholesterol 164 Total LDL Cholesterol 116 H HDL Cholesterol 36 L TSH 1.95 07/06/17 05:34 WBC RBC Hgb Hct MCV MCH MCHC RDW Plt Count MPV Neutrophils % Lymphocytes % Monocytes % Eosinophils % Basophils % PT with INR INR Sodium Potassium Chloride Carbon Dioxide Anion Gap BUN Creatinine Creat Clearance w eGFR POC Glucometer 150 Random Glucose Calcium Total Bilirubin AST ALT Alkaline Phosphatase Creatine Kinase Creatine Kinase Index CK-MB (CK-2) Troponin I Total Protein Albumin Triglycerides Cholesterol Total LDL Cholesterol HDL Cholesterol TSH Active Medications Generic Name Dose Route Start Last Admin Trade Name Jessica PRN Reason Stop Dose Admin Aspirin 81 mg 07/06/17 10:00 Asa - PO DAILY [facility] Atorvastatin Calcium 20 mg 07/05/17 22:00 07/05/17 22:48 Lipitor - PO 20 mg HS ELLIOT Administration Doxepin HCl 100 mg 07/06/17 10:00 Sinequan - PO DAILY ELLIOT Heparin Sodium (Porcine) 5,000 unit 07/05/17 22:00 07/06/17 06:37 Heparin - SQ 5,000 unit TID ELLIOT Administration CEFTRIAXONE 1 G/50 ML PREMIX 50 mls @ 100 mls/hr 07/06/17 10:00 Ceftriaxone 1 Gm-D5w Bag IVPB DAILY ELLIOT Azithromycin 500 mg/ Dextrose 250 mls @ 250 mls/hr 07/06/17 10:00 IVPB DAILY [facility] Insulin Aspart 1 vial 07/05/17 22:00 07/06/17 06:34 Novolog Vial Sliding Scale - SQ Not Given ACHS [facility] Protocol Losartan Potassium 25 mg 07/06/17 10:00 Cozaar - PO DAILY [facility] Pneumococcal 13-Valent Conj Vacc 0.5 ml 07/06/17 10:00 Prevnar 13 Syringe - IM 07/06/17 10:01 .ONCE ONE Tamsulosin HCl 0.4 mg 07/05/17 22:00 07/05/17 22:48 Flomax - PO 0.4 mg HS [facility] Administration Venlafaxine HCl 150 mg/ 225 mg 07/06/17 10:00 Venlafaxine HCl 75 mg PO DAILY [facility] ASSESSMENT/PLAN: 72yo M h/o HTN, NIDDM, former smoker, depression who experienced chest discomfort and was admitted with sepsis 2/2 acute bronchitis and atypical chest pain 1) Sepsis 2/2 to acute bronchiectasis --No true viral prodrome to episode --Rocephin and zithromax day 2 --Flu swab negative --Legionella negative --Standing duonebs on board; no need for steroids --Pre and post ambulatory pulse oximetry ordered 2) Atypical Chest pain syndrome --Echo shows LV normal size and function with normal EF; mild TR and mild MR --Continue ASA 81mg --continue Lipitor 20mg HS --Continue Cozaar 25mg qDaily 3) NIDDM --BGM --ISS ACHS --Pt previously on metformin at home and will continue upon discharge 4) HTN --Continue home medications as above --Currently controlled: 132/80 --BP monitoring FEN: Fluids: not indicated currently Electrolyte abnormalities: Hypophosphatemia; will replete Nutrition: Diabetic diet PPX DVT - Heparin SQ TID Dispo: D/C planning and will give oral antibiotics for home Case discussed with Dr. Maxi Cuevas, DO - Internal Medicine PGY-1 Visit type - Emergency Visit Emergency Visit: No - New Patient This patient is new to me today: Yes Date on this admission: 07/06/17 - Critical Care Critical Care patient: No
[2017-07-06 07:54] LABS: MCH 26.3 pg (25.7-33.7); MCHC 32.5 g/dl (32.0-35.9); MEAN PLT VOLUME 8.7 fl (7.5-11.1); PLATELET COUNT 218 K/MM3 (134-434); WHITE BLOOD COUNT 12.5 K/mm3 (4.0-10.0)
[2017-07-06 08:29] LABS: ANION GAP 10 (8-16); CALCIUM 8.2 mg/dL (8.5-10.1); CO2 26 mmol/L (21-32); CREATININE 0.9 mg/dL (0.7-1.3); GLUCOSE,RANDOM 135 mg/dL (74-106); MAGNESIUM 2.2 mg/dL (1.8-2.4); PHOSPHOROUS 1.9 mg/dL (2.5-4.9)
[2017-07-06] MEDS: ASPIRIN 81 MG CHEWABLE TABLETS PO SCH (09:42)
[2017-07-06] MEDS: LOSARTAN POTASSIUM 25 MG TABLET PO SCH (09:42)
[2017-07-06] MEDS: CEFTRIAXONE 1 G/50 ML PREMIX 50 ML IVPB SCH (09:43)
[2017-07-06] MEDS ORDERED: VENLAFAXINE HCL 150 MG E.R. CAPSULE PO SCH (10:00)
[2017-07-06] MEDS ORDERED: PNEUMOC 13-VAL CONJ-DIP CRM/PF 0.5 ML DISP.SYRIN IM ONE (10:00)
[2017-07-06] MEDS ORDERED: VENLAFAXINE HCL ER 150 MG, VENLAFAXINE HCL ER 75 MG PO SCH (10:00)
[2017-07-06] MEDS ORDERED: DOXEPIN HCL 50 MG CAPSULE PO SCH (10:00)
[2017-07-06] MEDS: AZITHROMYCIN IVPB 500 MG in DEXTROSE 5%-WATER - 250 ML IVPB SCH (10:15)
[2017-07-06] MEDS ORDERED: SODIUM PHOSPHATE - 30 MM in DEXTROSE 5%-WATER - 500 ML IVPB ONE (17:45)
[2017-07-06] MEDS ORDERED: ALBUTEROL SO4 2.5/IPRATROPIUM 0.5 INH SOL 3 ML VIAL.NEB. NEB PRN (17:59)
--- NOTE | 2017-07-06 18:06 | PN ---
Teaching Attending Note Name of Resident: Jacoby Cuevas ATTENDING PHYSICIAN STATEMENT Time of evaluation: 10:45 AM I saw and evaluated the patient. I reviewed the resident's note and discussed the case with the resident. I agree with the resident's findings and plan as documented. SUBJECTIVE: Patient seen and examined. breathing improved. No further chest pain, no new fevers or chills, overall feels better. OBJECTIVE: Vital Signs Period Temp Pulse Resp BP Sys/Grande Pulse Ox Last 24 Hr 98.2 F-98.4 F 92-119 20-20 93-135/66-80 95-97 Intake & Output 07/03/17 07/04/17 07/05/17 07/06/17 23:59 23:59 23:59 23:59 Intake Total 810 Balance 810 Weight 180 lb 192 lb 3 oz General: lying in bed in no acute distress CVS:S1S2 regular Chest: mildly decreased air entry bilaterally, no rales or wheezing appreciated Abdomen: soft, NT extremities: no edema Home Medication List Medication Instructions Recorded Confirmed Type Albuterol Sulfate [Proair Hfa -] 1 inhaler IN PRN PRN 10/04/12 07/05/17 History Aspirin [ASA -] 81 mg PO DAILY 10/04/12 07/05/17 History Atorvastatin Ca [Lipitor] 20 mg PO HS 10/04/12 07/05/17 History Doxepin HCl [Sinequan -] 100 mg PO DAILY 10/04/12 07/05/17 History Metformin HCl [Glucophage -] 500 mg PO 1700 10/04/12 07/05/17 History Omeprazole [Prilosec (RX)] 20 mg PO DAILY 10/04/12 07/05/17 History Tamsulosin HCl 0.4 mg PO HS 10/04/12 07/05/17 History Venlafaxine HCl [Venlafaxine HCl 225 mg PO DAILY 10/04/12 07/05/17 History ER] Fluticasone Furoate [Flonase 1 spr NS DAILY 07/05/17 07/05/17 History Sensimist] Loratadine [Claritin -] 10 mg PO DAILY 07/05/17 07/05/17 History Losartan Potassium [Cozaar -] 25 mg PO DAILY 07/05/17 07/05/17 History Active Medications Generic Name Dose Route Start Last Admin Trade Name Freq PRN Reason Stop Dose Admin Albuterol/Ipratropium 1 amp 07/06/17 17:59 Duoneb - NEB Q4H PRN SHORTNESS OF BREATH Albuterol/Ipratropium 1 amp 07/06/17 22:00 Duoneb - NEB TIDR ELLIOT Aspirin 81 mg 07/06/17 10:00 07/06/17 09:42 Asa - PO 81 mg DAILY E[facility]IOT Administration Atorvastatin Calcium 20 mg 07/05/17 22:00 07/05/17 22:48 Lipitor - PO 20 mg HS ELLIOT Administration Doxepin HCl 100 mg 07/06/17 10:00 07/06/17 10:49 Sinequan - PO 100 mg DAILY E[facility] Administration Heparin Sodium (Porcine) 5,000 unit 07/05/17 22:00 07/06/17 13:44 Heparin - SQ 5,000 unit TID ELLIOT Administration CEFTRIAXONE 1 G/50 ML PREMIX 50 mls @ 100 mls/hr 07/06/17 10:00 07/06/17 09: 43 Ceftriaxone 1 Gm-D5w Bag IVPB 100 mls/hr DAILY [facility] Administration Azithromycin 500 mg/ Dextrose 250 mls @ 250 mls/hr 07/06/17 10:00 07/06/17 10 :15 IVPB 250 mls/hr DAILY E[facility] Administration Sodium Phosphate 30 mm/ 510 mls @ 62.5 mls/hr 07/06/17 17:45 Dextrose IVPB 07/07/17 01:54 ONCE ONE Insulin Aspart 1 vial 07/05/17 22:00 07/06/17 16:14 Novolog Vial Sliding Scale - SQ Not Given ACHS [facility] Protocol Losartan Potassium 25 mg 07/06/17 10:00 07/06/17 09:42 Cozaar - PO 25 mg DAILY E[facility]OT Administration Tamsulosin HCl 0.4 mg 07/05/17 22:00 07/05/17 22:48 Flomax - PO 0.4 mg HS ELLIOT Administration Venlafaxine HCl 150 mg/ 225 mg 07/06/17 10:00 07/06/17 10:49 Venlafaxine HCl 75 mg PO 225 mg DAILY ELLIOT Administration Laboratory Results - last 24 hr 07/05/17 07/05/17 07/05/17 21:56 21:56 21:56 WBC RBC Hgb Hct MCV MCH MCHC RDW Plt Count MPV Sodium Potassium Chloride Carbon Dioxide Anion Gap BUN Creatinine POC Glucometer Random Glucose Hemoglobin A1c % 7.3 H Calcium Phosphorus Magnesium Troponin I < 0.02 Triglycerides 181 H Cholesterol 164 Total LDL Cholesterol 116 H HDL Cholesterol 36 L TSH 1.95 07/05/17 07/06/17 07/06/17 22:47 05:25 05:25 WBC 12.5 H RBC 6.01 H Hgb 15.8 Hct 48.7 MCV 81.0 MCH 26.3 MCHC 32.5 RDW 15.0 Plt Count 218 MPV 8.7 Sodium 139 Potassium 4.2 Chloride 103 Carbon Dioxide 26 Anion Gap 10 BUN 12 D Creatinine 0.9 POC Glucometer [phone] Random Glucose 135 H Hemoglobin A1c % Calcium 8.2 L Phosphorus 1.9 L Magnesium 2.2 Troponin I Triglycerides Cholesterol Total LDL Cholesterol HDL Cholesterol TSH 07/06/17 07/06/17 07/06/17 05:34 11:18 15:47 WBC RBC Hgb Hct MCV MCH MCHC RDW Plt Count MPV Sodium Potassium Chloride Carbon Dioxide Anion Gap BUN Creatinine POC Glucometer 150 180 118 Random Glucose Hemoglobin A1c % Calcium Phosphorus Magnesium Troponin I Triglycerides Cholesterol Total LDL Cholesterol HDL Cholesterol TSH Microbiology 07/05/17 21:54 Urine For Antigen Detection Legionella Antigen - Final 07/05/17 21:54 Urine For Antigen Detection Streptococcus pneumoniae Antigen (M - Final 07/05/17 15:00 Nasopharyngeal Swab Influenza Types A,B Antigen (MATHEW) - Final 07/05/17 15:00 Nasopharyngeal Swab - Final ASSESSMENT AND PLAN: 72 yom with PMHx of NIDDM, HTN, Depression, ex smoker, admitted with sepsis likely from Acute bronchitis/Bronchiectasis and atypical chest pain. -Sepsis, likely secondary to Acute bronchtiis/Bronchiectasis (?viral prodrome) -Atypical chest pain -H/o nicotine dependence (quit 30 years ago) -NIDDM -HTN -Depression Plan: Ceftriaxone/azithromycin day 2, flu swab/legionell/pneumococcal studies neg. Add standing nebs. Hold off on steroids currently as no wheezing. No events on telemetry, ACs ruled out. Continue ASA/statin/ARB. outpatient follow up once active respiratory issues resolved. ISS, diabetic diet, continue ARB DVTPPX with heparin Ambulatory pulse ox Anticipate d/c in 24 hours on oral antibiotics if continues to improve. Plan discussed with patient in detail, all questions answered.
[2017-07-06] MEDS: ATORVASTATIN CA 20 MG TABLET (FP) PO SCH (21:42)
[2017-07-06] MEDS: TAMSULOSIN HCL 0.4 MG CAP.ER.24H (FP) PO SCH (21:42)
[2017-07-06] MEDS ORDERED: ALBUTEROL SO4 2.5/IPRATROPIUM 0.5 INH SOL 3 ML VIAL.NEB. NEB SCH (22:00)
[2017-07-06] MEDS: ALBUTEROL SO4 2.5/IPRATROPIUM 0.5 INH SOL 3 ML VIAL.NEB. NEB SCH (22:41)
[2017-07-07 02:57] VITALS: TEMP 98.2
[2017-07-07] MEDS: INSULIN SLIDING SCALE (NOVOLOG) 1 VIAL SQ SCH ×2 (06:19→13:13)
[2017-07-07] MEDS: HEPARIN NA (PORCINE) 5,000 UNITS/ML 1ML VIAL SQ SCH (06:22)
[2017-07-07] MEDS: ALBUTEROL SO4 2.5/IPRATROPIUM 0.5 INH SOL 3 ML VIAL.NEB. NEB SCH ×2 (06:50→14:14)
[2017-07-07 07:11] LABS: BASO % 0.3 % (0-2.0); EOS % 3.3 % (0-4.5); MCH 26.4 pg (25.7-33.7); MCHC 32.9 g/dl (32.0-35.9); MEAN CELL VOLUME 80.4 fl (80-96); MEAN PLT VOLUME 8.6 fl (7.5-11.1); NEUT % 60.1 % (42.8-82.8); PLATELET COUNT 225 K/MM3 (134-434); RDW 14.9 % (11.9-15.9); WHITE BLOOD COUNT 8.4 K/mm3 (4.0-10.0)
[2017-07-07 07:25] LABS: ANION GAP 7 (8-16); CALCIUM 7.8 mg/dL (8.5-10.1); CO2 29 mmol/L (21-32); CREATININE 0.9 mg/dL (0.7-1.3); GLUCOSE,RANDOM 119 mg/dL (74-106); MAGNESIUM 2.3 mg/dL (1.8-2.4); PHOSPHOROUS 3.5 mg/dL (2.5-4.9)
[2017-07-07 07:30] VITALS: BP 118/62; PULSE 71
--- NOTE | 2017-07-07 08:00 | DS ---
Physical Exam: SUBJECTIVE: No acute events overnight. No events noted on cardiac monitoring. Pt reports some shoulder pain today, but denies any fall or sleeping in an unusual position. OBJECTIVE: Vital Signs Period Temp Pulse Resp BP Sys/Grande Pulse Ox Last 24 Hr 98.0 F-98.4 F 71-119 18-20 93-135/57-68 92-97 PHYSICAL EXAM GENERAL: NAD, awake, alert, and fully oriented HEENT: NC/AT, No JVD, soft, EOMI, ADENIKE, moist mucosa with normal structures of mouth, no carotid bruits LUNGS: CTA bilaterally, no wheezes, rhonchi or rales. No accessory muscle use. HEART: RRR, S1, S2 without murmur ABDOMEN: Soft, nontender, nondistended, normoactive bowel sounds, no guarding, no rebound, no hepatosplenomegaly EXTREMITIES: 2+ DP pulses, warm, well-perfused, no edema. NEUROLOGICAL: Cranial nerves II through XII grossly intact. Strength 5/5 grossly. Normal speech, gait not observed. PSYCH: Normal mood, normal affect. SKIN: Warm, dry, no rashes or lesions noted LABS Laboratory Results - last 24 hr 07/05/17 07/06/17 07/06/17 21:56 05:25 11:18 WBC RBC Hgb Hct MCV MCH MCHC RDW Plt Count MPV Neutrophils % Lymphocytes % Monocytes % Eosinophils % Basophils % Sodium 139 Potassium 4.2 Chloride 103 Carbon Dioxide 26 Anion Gap 10 BUN 12 D Creatinine 0.9 POC Glucometer 180 Random Glucose 135 H Hemoglobin A1c % 7.3 H Calcium 8.2 L Phosphorus 1.9 L Magnesium 2.2 07/06/17 07/06/17 07/07/17 15:47 21:41 05:05 WBC 8.4 D RBC 5.58 Hgb 14.7 Hct 44.9 MCV 80.4 MCH 26.4 MCHC 32.9 RDW 14.9 Plt Count 225 MPV 8.6 Neutrophils % 60.1 D Lymphocytes % 30.4 D Monocytes % 5.9 Eosinophils % 3.3 D Basophils % 0.3 Sodium Potassium Chloride Carbon Dioxide Anion Gap BUN Creatinine POC Glucometer 118 168 Random Glucose Hemoglobin A1c % Calcium Phosphorus Magnesium 07/07/17 07/07/17 05:05 05:48 WBC RBC Hgb Hct MCV MCH MCHC RDW Plt Count MPV Neutrophils % Lymphocytes % Monocytes % Eosinophils % Basophils % Sodium 139 Potassium 3.6 Chloride 103 Carbon Dioxide 29 Anion Gap 7 L BUN 15 D Creatinine 0.9 POC Glucometer 120 Random Glucose 119 H Hemoglobin A1c % Calcium 7.8 L Phosphorus 3.5 D Magnesium 2.3 HOSPITAL COURSE: Date of Admission:07/05/17 Date of Discharge: 07/07/17 Discharge Summary Reason For Visit: CHEST PAIN; PNEUMONIA Current Active Problems Chest pain (Acute) Pneumonia (Acute) Condition: Good - Instructions Diet, Activity, Other Instructions: You were hospitalized to evaluate your chest pain and because of inflammatory changes in your lungs Please follow-up with your general medical doctor --If you do not have a general medical doctor please feel free to call [phone] and schedule an appointment with Dr. Bansal and Dr. Cuevas Please follow-up with a dairy department manager --If you do not have a preferred dairy department manager please feel free to call If your symptoms return, worsen, or change please call your general doctor or return to the nearest ER for further evaluation Medication Changes: --Please continue all of your medications like you have been prior to your hospital stay --Resume your Metformin once per day as you had been before --You will be given Zithromax 500mg to be taken ONCE per day for the next 4 days --You will be given Cefuroxime to be taken TWICE per day for the next 4 days --It is VERY important to finish all the antibiotic schedule regardless if you feel better or not. --You will need to use oxygen while exercising and walking at home. This may only be temporary, however you need it for the time being. Please do not smoke with your oxygen running if you do feel the need to smoke --You will be given a nebulizer and medication to use if you feel short of breath or if you are wheezing. Referrals: Luke Valles MD [Staff Physician] - Zarina Jose MD [Primary Care Provider] - Disposition: HOME - Home Medications Comprehensive Discharge Medication List: Ambulatory Orders Albuterol Sulfate [Proair Hfa -] 1 inhaler IN PRN PRN 10/04/12 Aspirin [ASA -] 81 mg PO DAILY 10/04/12 Atorvastatin Ca [Lipitor] 20 mg PO HS 10/04/12 Doxepin HCl [Sinequan -] 100 mg PO DAILY 10/04/12 Metformin HCl [Glucophage -] 500 mg PO 1700 10/04/12 Omeprazole [Prilosec (RX)] 20 mg PO DAILY 10/04/12 Polyethylene Glycol 3350 [Miralax 255 gm Btl -] 17 gm PO DAILY #1 bottle Psyllium Husk (with Sugar) [Metamucil Packet] 1 each PO BID #0 packet 10/04/12 Tamsulosin HCl 0.4 mg PO HS 10/04/12 Venlafaxine HCl [Venlafaxine HCl ER] 225 mg PO DAILY 10/04/12 Fluticasone Furoate [Flonase Sensimist] 1 spr NS DAILY 07/05/17 Loratadine [Claritin -] 10 mg PO DAILY 07/05/17 Losartan Potassium [Cozaar -] 25 mg PO DAILY 07/05/17 This patient is new to me today: No Emergency Visit: No Critical Care patient: No
[2017-07-07] MEDS ORDERED: PT OWN MED DRAWER 7, Y5N ONE (08:59)
[2017-07-07] MEDS: AZITHROMYCIN IVPB 500 MG in DEXTROSE 5%-WATER - 250 ML IVPB SCH (09:23)
[2017-07-07] MEDS: CEFTRIAXONE 1 G/50 ML PREMIX 50 ML IVPB SCH (09:23)
[2017-07-07] MEDS: LOSARTAN POTASSIUM 25 MG TABLET PO SCH (09:23)
[2017-07-07] MEDS: ASPIRIN 81 MG CHEWABLE TABLETS PO SCH (09:23)
[2017-07-07] MEDS ORDERED: DOXEPIN HCL 25 MG CAPSULE PO SCH (10:00)
[2017-07-07] MEDS ORDERED: VENLAFAXINE HCL 75 MG E.R. CAPSULES (FP) PO SCH (10:00)
--- NOTE | 2017-07-07 13:59 | PN ---
Teaching Attending Note Name of Resident: Jacoby Cuevas ATTENDING PHYSICIAN STATEMENT Time of evaluation; 11:35 AM I saw and evaluated the patient. I reviewed the resident's note and discussed the case with the resident. I agree with the resident's findings and plan as documented. SUBJECTIVE: Patient seen and examined. breathing improved, no fevers, chills> reports some right shoulder pain, no trauma. OBJECTIVE: Vital Signs Period Temp Pulse Resp BP Sys/Grande Pulse Ox Last 24 Hr 98.0 F-98.2 F 71-119 18-20 93-134/57-66 92-96 Intake & Output 07/04/17 07/05/17 07/06/17 07/07/17 23:59 23:59 23:59 23:59 Intake Total 1290 500 Balance 1290 500 Weight 180 lb 192 lb 3 oz General: lying in bed in no acute distress Chest; good air entry bilaterally, no rales or wheezing Extremities: right shoulder full ROM, no point tenderness, swelling or erythema noted no edema Home Medication List Medication Instructions Recorded Confirmed Type Albuterol Sulfate [Proair Hfa -] 1 inhaler IN PRN PRN 10/04/12 07/05/17 History Aspirin [ASA -] 81 mg PO DAILY 10/04/12 07/05/17 History Atorvastatin Ca [Lipitor] 20 mg PO HS 10/04/12 07/05/17 History Doxepin HCl [Sinequan -] 100 mg PO DAILY 10/04/12 07/05/17 History Metformin HCl [Glucophage -] 500 mg PO 1700 10/04/12 07/05/17 History Omeprazole [Prilosec (RX)] 20 mg PO DAILY 10/04/12 07/05/17 History Tamsulosin HCl 0.4 mg PO HS 10/04/12 07/05/17 History Venlafaxine HCl [Venlafaxine HCl 225 mg PO DAILY 10/04/12 07/05/17 History ER] Fluticasone Furoate [Flonase 1 spr NS DAILY 07/05/17 07/05/17 History Sensimist] Loratadine [Claritin -] 10 mg PO DAILY 07/05/17 07/05/17 History Losartan Potassium [Cozaar -] 25 mg PO DAILY 07/05/17 07/05/17 History Active Medications Generic Name Dose Route Start Last Admin Trade Name Freq PRN Reason Stop Dose Admin Albuterol/Ipratropium 1 amp 07/06/17 17:59 Duoneb - NEB Q4H PRN SHORTNESS OF BREATH Albuterol/Ipratropium 1 amp 07/06/17 22:00 07/07/17 06:50 Duoneb - NEB 1 amp TIDR ELLIOT Administration Aspirin 81 mg 07/06/17 10:00 07/07/17 09:23 Asa - PO 81 mg DAILY ELLIOT Administration Atorvastatin Calcium 20 mg 07/05/17 22:00 07/06/17 21:42 Lipitor - PO 20 mg HS ELLIOT Administration Doxepin HCl 100 mg 07/07/17 10:00 07/07/17 09:25 Sinequan - PO 100 mg DAILY ELLIOT Administration Heparin Sodium (Porcine) 5,000 unit 07/05/17 22:00 07/07/17 06:22 Heparin - SQ 5,000 unit TID ELLIOT Administration CEFTRIAXONE 1 G/50 ML PREMIX 50 mls @ 100 mls/hr 07/06/17 10:00 07/07/17 09: 23 Ceftriaxone 1 Gm-D5w Bag IVPB 100 mls/hr DAILY ELLIOT Administration Azithromycin 500 mg/ Dextrose 250 mls @ 250 mls/hr 07/06/17 10:00 07/07/17 09 :23 IVPB 250 mls/hr DAILY ELLIOT Administration Insulin Aspart 1 vial 07/05/17 22:00 07/07/17 13:13 Novolog Vial Sliding Scale - SQ 4 units ACHS ELLIOT Administration Protocol Losartan Potassium 25 mg 07/06/17 10:00 07/07/17 09:23 Cozaar - PO 25 mg DAILY ELLIOT Administration Tamsulosin HCl 0.4 mg 07/05/17 22:00 07/06/17 21:42 Flomax - PO 0.4 mg HS ELLIOT Administration Venlafaxine HCl 225 mg 07/07/17 10:00 07/07/17 09:24 Effexor Xr - PO 225 mg DAILY ELLIOT Administration Laboratory Results - last 24 hr 07/06/17 07/06/17 07/07/17 15:47 21:41 05:05 WBC 8.4 D RBC 5.58 Hgb 14.7 Hct 44.9 MCV 80.4 MCH 26.4 MCHC 32.9 RDW 14.9 Plt Count 225 MPV 8.6 Neutrophils % 60.1 D Lymphocytes % 30.4 D Monocytes % 5.9 Eosinophils % 3.3 D Basophils % 0.3 Sodium Potassium Chloride Carbon Dioxide Anion Gap BUN Creatinine POC Glucometer 118 168 Random Glucose Calcium Phosphorus Magnesium 07/07/17 07/07/17 07/07/17 05:05 05:48 11:12 WBC RBC Hgb Hct MCV MCH MCHC RDW Plt Count MPV Neutrophils % Lymphocytes % Monocytes % Eosinophils % Basophils % Sodium 139 Potassium 3.6 Chloride 103 Carbon Dioxide 29 Anion Gap 7 L BUN 15 D Creatinine 0.9 POC Glucometer 120 204 Random Glucose 119 H Calcium 7.8 L Phosphorus 3.5 D Magnesium 2.3 Microbiology 07/05/17 19:28 Blood - Peripheral Venous Blood Culture - Preliminary NO GROWTH OBTAINED AFTER 24 HOURS, INCUBATION TO CONTINUE FOR 4 DAYS. 07/05/17 19:28 Blood - Peripheral Venous Blood Culture - Preliminary NO GROWTH OBTAINED AFTER 24 HOURS, INCUBATION TO CONTINUE FOR 4 DAYS. 07/05/17 21:54 Urine For Antigen Detection Legionella Antigen - Final 07/05/17 21:54 Urine For Antigen Detection Streptococcus pneumoniae Antigen (M - Final 07/05/17 15:00 Nasopharyngeal Swab Influenza Types A,B Antigen (MATHEW) - Final 07/05/17 15:00 Nasopharyngeal Swab - Final ASSESSMENT AND PLAN: 72 yom with PMHx of NIDDM, HTN, Depression, ex smoker, admitted with sepsis likely from Acute bronchitis/Bronchiectasis and atypical chest pain. -Sepsis, likely secondary to Acute bronchtiis/Bronchiectasis (?viral prodrome) -Atypical chest pain -H/o nicotine dependence (quit 30 years ago) -NIDDM -HTN -Depression Plan: Ceftriaxone/azithromycin day 3, flu swab/legionell/pneumococcal studies neg. Clinically improved. change to cefuroxime/azithromycin for a total 1 week course. Add duonebs prn. Shoulder xray with osteoarthritis, likely etiology for intermittent pain. tylenol prn and outpatient PT/ortho follow up as needed. No events on telemetry, ACs ruled out. Continue ASA/statin/ARB. outpatient follow up once active respiratory issues resolved. ISS, diabetic diet, resume metformin tomorrow, 48 hours post contrast. Continue ARB DVTPPX with heparin Ambulatory pulse ox noted, home oxygen with activity arranged, anticipate transient. CTA neg. d/c home today with VNS. Plan discussed with patient in detail, all questions answered.
== END 2017-07-07 14:57 | disposition home health service (06) | DRG 872 ==
LOC: JER 12:25 → JERBED 18:26 → J4W 07-06 04:01
PROVIDERS: ADMIT Hospitalist; ATTEND Hospitalist
DX: A41.9 Sepsis, unspecified organism (principal); J47.0 Bronchiectasis with acute lower respiratory infection; J20.9 Acute bronchitis, unspecified; E78.5 Hyperlipidemia, unspecified; F32.9 Major depressive disorder, single episode, unspecified; E11.9 Type 2 diabetes mellitus without complications; Z87.891 Personal history of nicotine dependence; M17.0 Bilateral primary osteoarthritis of knee; N40.0 Benign prostatic hyperplasia without lower urinary tract symptoms; I51.7 Cardiomegaly; I34.0 Nonrheumatic mitral (valve) insufficiency; I36.1 Nonrheumatic tricuspid (valve) insufficiency
CPT/HCPCS: 36415; 71010-TC; 71275-TC; 73030-TC-RT; 80048; 80053; 80061; 82550; 82553; 83036; 83721; 83735; 84100; 84443; 84484; 85025; 85027; 85610; 86738; 87040; 87070; 87205; 87804; 87899; 93005; 93010; 93306-TC; 94640; 94761; 99285-25; J1644